=== PATIENT | female | born 1985 | race African-American/Black ===

== ENCOUNTER 2018-02-23 17:23 | Emergency (ER) | payer OTHER ==
[2018-02-23] MEDS ORDERED: ACETAMINOPHEN 500 MG TAB PO ONE (17:35)
--- NOTE | 2018-02-23 17:37 | EDPHY ---
H & P Time Seen by Provider: 02/23/18 17:35 HPI/ROS: Chief complaint. Head injury HPI. 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 She stood up into a monitor in the operating room. Struck her right posterior head on the monitor. Did not lose conscious but immediately was dizzy and nauseated and unstable. She has a headache right posterior head. Right eye pain as well. Vision is okay however. No neck discomfort, chest discomfort, trouble breathing, abdominal pain, back pain or injury to arms or legs. Injury occurred about 1 hr prior to arrival ROS Constitutional. no fever/chills, no weakness Eyes. no problems with vision; right eye pain ENT. no sore throat, no nasal drainage Cardiovascular. no chest pain Respiratory. no shortness of breath, no cough Abdominal. no abdominal pain, no nausea/vomiting, no diarrhea . no problems urinating MS. no calf pain/swelling, no neck/back pain, no joint pain Skin. no rash Lymph. no swollen glands Neuro. Head injury with headache Past Medical/Surgical History: Past medical history is significant cholecystectomy and attention deficit hyperactivity disorder Social History: , nonsmoker, no alcohol Smoking Status: Never smoked Physical Exam: General Appearance: Alert well-developed female moderate distress vital signs are stable Eyes: Pupils are equal round reactive. No evidence of extraocular impairment. ENT, bump on right parietal occiput area. No hemotympanum or Pugh sign Respiratory: There are no retractions, lungs are clear to auscultation. Cardiovascular: Regular rate and rhythm. Gastrointestinal: Abdomen is soft and nontender, no masses, bowel sounds normal. Neurological: Awake and alert, sensory and motor exams grossly normal. Skin: Warm and dry, no rashes. Musculoskeletal: Neck is supple nontender. Extremities symmetrical, full range of motion. Psychiatric: Patient is oriented X 3, there is no agitation. Constitutional: Initial Vital Signs Temperature (C) 36.8 C 02/23/18 17:25 Heart Rate 82 02/23/18 17:25 Respiratory Rate 16 02/23/18 17:25 Blood Pressure 100/60 02/23/18 17:25 O2 Sat (%) 97 02/23/18 17:25 O2 Delivery Mode Room Air Allergies/Adverse Reactions: morphine Allergy (Intermediate, Verified 02/23/18 17:34) Rash Home Medications: Medication Instructions Recorded Ondansetron Odt [Zofran Odt] 4 mg PO Q4PRN PRN #4 tab 02/23/18 Replesta 02/23/18 Medical Decision Making - Diagnostics Imaging Results: Imaging Impressions Head CT 02/23/18 17:45 Impression: 1. Normal CT brain without contrast. 2. No epidural or subdural hematoma. Findings and recommendations discussed with Emergency Department physician, SHARON ENGLISH at 18:50 hour, 02/23/2018. Final report concurs with initial preliminary interpretation. Head CT reviewed by me and discussed with Dr. Adam for radiology he is normal. No skull fracture or intracranial bleeding Procedures: Tylenol and Zofran for headache and nausea ED Course/Re-evaluation: Re-evaluation 6:55 p.m.. Patient and I discussed imaging study results, treatment plan including criteria for return importance of follow-up and further evaluation. She expresses understanding and agreement Differential Diagnosis: I considered concussion, contusion, skull fracture, intracranial bleeding - Data Points Medications Given: Discontinued Medications Acetaminophen (Tylenol) 1,000 mg PO EDNOW ONE Stop: 02/23/18 17:36 Last Admin: 02/23/18 17:38 Dose: 1,000 mg Ondansetron HCl (Zofran Odt) 4 mg PO EDNOW ONE Stop: 02/23/18 17:46 Last Admin: 02/23/18 17:48 Dose: 4 mg Departure - Departure Disposition: Home, Routine, Self-Care Clinical Impression: Head contusion Qualifiers: Encounter type: initial encounter Contusion of head detail: scalp Qualified Code(s): S00.03XA - Contusion of scalp, initial encounter Condition: Good Instructions: Head Injury (ED) Additional Instructions: Tylenol 1000 mg every 4-6 hours as needed for headache Zofran if needed for nausea Activity as tolerated Return for worsening headache or vomiting or confusion. Re-evaluation by regular physician or workmen's comp in 2-3 days if not improving Referrals: NONE *PRIMARY CARE P,. [Primary Care Provider] - As per Instructions Prescriptions: Ondansetron Odt [Zofran Odt] 4 mg PO Q4PRN PRN #4 tab PRN Reason: Nausea/Vomiting, Use 1st
[2018-02-23] MEDS ORDERED: ONDANSETRON DISINTEGRATING 4 MG TAB PO ONE (17:45)
[2018-02-23 19:16] VITALS: BP 113/65
== END 2018-02-23 19:17 | disposition home or self-care (01) ==
DX: S00.03XA Contusion of scalp, initial encounter (principal); W22.8XXA Striking against or struck by other objects, initial encounter; Y92.234 Operating room of hospital as the place of occurrence of the external cause; Y99.0 Civilian activity done for income or pay; Y93.89 Activity, other specified